=== PATIENT | female | born 2005 | race Hispanic/Latino ===

== ENCOUNTER 2025-02-10 23:13 | Emergency (ER) | payer SELFPAY ==
[~2025-02-10] VITALS: Ht 154.9 cm; Wt 63.5 kg
[~2025-02-10 23:13] MED LIST: KETOROLAC TROME10 MG PO
[2025-02-11] MEDS: ONDANSETRON HCL INJ 2MG/ML 2ML 2 MG/ML VIAL IV STA (00:51)
[2025-02-11] MEDS: SODIUM CHLORIDE 0.9% 1000ML 1,000 ML IV ONE (00:51)
[2025-02-11] MEDS ORDERED: FLUNISOLIDE25 ML (01:46)
[2025-02-11] MEDS ORDERED: CETIRIZINE HCL10 M1 PO (01:47)
[2025-02-11] MEDS ORDERED: ONDANSETRON ODT4 MG PO (01:48)
[2025-02-11] MEDS: DIPHENHYDRAMINE HCL INJ 50 MG/ML VIAL IV PRN (01:50)
[2025-02-11] MEDS: ALBUTEROL/IPRATROPIUM 3 ML NEB NEB ONE (01:51)
[2025-02-11 01:59] VITALS: PULSE 72; RESP 18; TEMP 97.9
[2025-02-11] MEDS ORDERED: VENTOLIN HFA18 GM INH (02:14)
[2025-02-11 02:21] VITALS: BP 142/99; PULSE 72; RESP 18; TEMP 97.9; O2SAT 100
== END 2025-02-11 02:25 | disposition home or self-care (01) ==
LOC: FSED 23:26
DX: R21 Rash and other nonspecific skin eruption (principal); J30.9 Allergic rhinitis, unspecified; J33.9 Nasal polyp, unspecified
CPT/HCPCS: 80053; 80307; 81003; 81025; 85025; 96374; 99284; J1200; J2405; J7030